=== PATIENT | male | born 1990 | race Caucasian/White ===

== ENCOUNTER 2018-04-03 21:44 | Emergency (ER) | payer SELFPAY ==
[~2018-04-03] VITALS: Ht 177.8 cm; Wt 77.1 kg
--- NOTE | 2018-04-03 22:58 | Diagnostic Imaging Report ---
EXAM: FINGER RIGHT, AP, lateral and oblique INDICATION: Swelling abrasion index finger COMPARISON: None FINDINGS: BONES: No acute fractures. JOINTS: No malalignment. SOFT TISSUES: Soft tissue swelling and air around the mid dorsal second digit lateral aspect. No radiopaque foreign body. IMPRESSION: Soft tissue swelling and air around the mid dorsal second digit lateral aspect consistent with infection. No underlying bone abnormality. Signed by: Dr. Rosmeary James M.D. on 04/03/2018 10:55 PM
== END 2018-04-03 23:25 | disposition home or self-care (01) ==
LOC: ER 21:44
DX: M79.644 Pain in right finger(s) (principal); L03.011 Cellulitis of right finger; Y99.0 Civilian activity done for income or pay
CPT/HCPCS: 99283